=== PATIENT | male | born 1975 | race Caucasian/White ===

== ENCOUNTER 2018-09-07 02:25 | Emergency (ER) | payer OTHER ==
[~2018-09-07] VITALS: Ht 182.9 cm; Wt 104.3 kg
[2018-09-07] MEDS ORDERED: IV NORMAL SALINE 1000ML BAG 1,000 ML IV SCH (03:00)
[2018-09-07] MEDS ORDERED: ONDANSETRON PF 4 MG/2 ML VIAL. IV ONE (03:00)
[2018-09-07 03:16] LABS: BASO % 0 % (0-3); EOS # 0.2 x10^3/uL (0.0-0.7); EOS % 2 % (0-3); HEMATOCRIT 49.3 % (39.0-53.0); HEMOGLOBIN 16.8 g/dL (13.0-17.5); LYMPH # 0.6 x10^3/uL (1.0-4.8); LYMPH % 4 % (24-48); MEAN CORPUSCULAR HEMOGLOBIN 30 pg (25-35); MEAN CORPUSCULAR HGB CONC 34 g/dL (31-37); MEAN CORPUSCULAR VOLUME 86 fL (79-100); MONO # 0.6 x10^3/uL (0.0-1.1); MONO % 5 % (0-9); NEUT # 11.6 x10^3uL (1.8-7.7); NEUT % 89 % (31-73); PLATELET COUNT 257 x10^3/uL (140-400); RED CELL DISTRIBUTION WIDTH 12.7 % (11.5-14.5)
[2018-09-07 03:22] LABS: CALCIUM 9.5 mg/dL (8.5-10.1); CREATININE 1.3 mg/dL (0.7-1.3); GFR 60.2; POTASSIUM 3.8 mmol/L (3.5-5.1)
[2018-09-07 03:30] LABS: ALBUMIN 4.2 g/dL (3.4-5.0); ALBUMIN/GLOBULIN RATIO 1.1 (1.0-1.7); TOTAL BILIRUBIN 0.7 mg/dL (0.2-1.0); TOTAL PROTEIN 8.1 g/dL (6.4-8.2)
[2018-09-07 03:48] LABS: % BANDS 6 % (0-9); % EOS 1 % (0-5); % LYMPHS 6 % (24-48); % MONOS 4 % (0-10); % SEGS 83 % (35-66); PLT ESTIMATE ADEQUATE (ADEQUATE)
[2018-09-07] MEDS ORDERED: DIPHENOXYLATE/ATROPINE TABLET. PO ONE (04:00)
[2018-09-07 04:04] LABS: BILIRUBIN,URINE SMALL (NEG); CLARITY,URINE CLEAR; COLOR,URINE AMBER; NITRITE,URINE NEGATIVE (NEG); PH,URINE 5.5; PROTEIN,URINE NEGATIVE (NEG-TRACE); UROBILINOGEN,URINE 0.2 mg/dL (0.2 mg/dL)
[2018-09-07 04:12] LABS: BACTERIA,URINE 0 /HPF (0-FEW); RBC,URINE 0 /HPF (0-2); SQUAMOUS EPITHELIAL CELL,UR OCC /LPF
[2018-09-07 04:39] VITALS: BP 116/66
[2018-09-07] MEDS ORDERED: ONDA4TAB7 PO (05:05)
[2018-09-07] MEDS ORDERED: DIPH1TAB PO (05:05)
--- NOTE | 2018-09-07 05:05 | PHYS DOC ---
Past Medical History Past Medical History: No Pertinent History Alcohol Use: Occasionally Drug Use: None Adult General Chief Complaint Chief Complaint: MULTIPLE COMPLAINTS HPI HPI Patient is a 43-year-old male who presents with complaint of nausea with vomiting and diarrhea that started about 3 hours prior to arrival. Patient also indicates that he has some burning in his mid chest. He states that the pain started after the vomiting. He denies any fever. He denies any shortness of breath. Patient states that symptoms are worsened if he tries to eat or drink anything. Review of Systems Review of Systems Constitutional: Denies fever or chills [] Respiratory: Denies cough or shortness of breath [] Cardiovascular: No additional information not addressed in HPI [] GI: Complains of abdominal cramping with nausea, vomiting and diarrhea [] Neurologic: Denies headache, focal weakness or sensory changes [] All other systems were reviewed and found to be within normal limits, except as documented in this note. Current Medications Current Medications Current Medications Medications (Trade) Dose Ordered Sig/Amna Start Time Stop Time Status Last Admin Dose Admin Diphenoxylate HCl/ Atropine (Lomotil) 2 tab 1X ONCE 09/07/18 04:00 09/07/18 04:01 DC 09/07/18 03:57 2 TAB Ondansetron HCl (Zofran) 4 mg 1X ONCE 09/07/18 03:00 09/07/18 03:01 DC 09/07/18 03:19 4 MG Sodium Chloride 1,000 ml @ 1,000 mls/hr Q1H 09/07/18 03:00 09/07/18 03:59 DC 09/07/18 03:19 1,000 MLS/HR Allergies Allergies Allergies Coded Allergies Type Severity Reaction Last Updated Verified No Known Drug Allergies 09/07/18 No Physical Exam Physical Exam Constitutional: Well developed, well nourished, no acute distress, non-toxic appearance. [] HENT: Normocephalic, atraumatic, bilateral external ears normal, oropharynx moist, no oral exudates, nose normal. [] Eyes: PERRLA, EOMI, conjunctiva normal, no discharge. [] Neck: Normal range of motion, no tenderness, supple, no stridor. [] Cardiovascular: Regular rate and rhythm[] Lungs & Thorax: Bilateral breath sounds clear to auscultation [] Abdomen: Bowel sounds normal, soft, with mild generalized tenderness. [] Skin: Warm, dry, no erythema, no rash. [] Extremities: No tenderness, no cyanosis, no clubbing, ROM intact, no edema. [] Neurologic: Alert and oriented X 3, no focal deficits noted. [] Current Patient Data Vital Signs Vital Signs Date Time Temp Pulse Resp B/P (MAP) Pulse Ox O2 Delivery O2 Flow Rate FiO2 09/07/18 04:39 70 12 116/66 (83) 96 Room Air 09/07/18 02:51 98.0 98.0 Lab Values Laboratory Tests Test 09/07/18 03:10 09/07/18 03:59 White Blood Count 13.0 x10^3/uL (4.0-11.0) H Red Blood Count 5.70 x10^6/uL (4.30-5.70) Hemoglobin 16.8 g/dL (13.0-17.5) Hematocrit 49.3 % (39.0-53.0) Mean Corpuscular Volume 86 fL (79-100) Mean Corpuscular Hemoglobin 30 pg (25-35) Mean Corpuscular Hemoglobin Concent 34 g/dL (31-37) Red Cell Distribution Width 12.7 % (11.5-14.5) Platelet Count 257 x10^3/uL (140-400) Neutrophils (%) (Auto) 89 % (31-73) H Lymphocytes (%) (Auto) 4 % (24-48) L Monocytes (%) (Auto) 5 % (0-9) Eosinophils (%) (Auto) 2 % (0-3) Basophils (%) (Auto) 0 % (0-3) Neutrophils # (Auto) 11.6 x10^3uL (1.8-7.7) H Lymphocytes # (Auto) 0.6 x10^3/uL (1.0-4.8) L Monocytes # (Auto) 0.6 x10^3/uL (0.0-1.1) Eosinophils # (Auto) 0.2 x10^3/uL (0.0-0.7) Basophils # (Auto) 0.0 x10^3/uL (0.0-0.2) Segmented Neutrophils % 83 % (35-66) H Band Neutrophils % 6 % (0-9) Lymphocytes % 6 % (24-48) L Monocytes % 4 % (0-10) Eosinophils % 1 % (0-5) Platelet Estimate Adequate (ADEQUATE) Sodium Level 141 mmol/L (136-145) Potassium Level 3.8 mmol/L (3.5-5.1) Chloride Level 102 mmol/L (98-107) Carbon Dioxide Level 26 mmol/L (21-32) Anion Gap 13 (6-14) Blood Urea Nitrogen 25 mg/dL (8-26) Creatinine 1.3 mg/dL (0.7-1.3) Estimated GFR (Cockcroft-Gault) 60.2 BUN/Creatinine Ratio 19 (6-20) Glucose Level 133 mg/dL (70-99) H Calcium Level 9.5 mg/dL (8.5-10.1) Total Bilirubin 0.7 mg/dL (0.2-1.0) Aspartate Amino Transferase (AST) 25 U/L (15-37) Alanine Aminotransferase (ALT) 48 U/L (16-63) Alkaline Phosphatase 90 U/L (46-116) Troponin I Quantitative < 0.017 ng/mL (0.000-0.055) Total Protein 8.1 g/dL (6.4-8.2) Albumin 4.2 g/dL (3.4-5.0) Albumin/Globulin Ratio 1.1 (1.0-1.7) Lipase 125 U/L (73-393) Urine Collection Type Unknown Urine Color Daina Urine Clarity Clear Urine pH 5.5 Urine Specific Amelia >=1.030 Urine Protein Negative mg/dL (NEG-TRACE) Urine Glucose (UA) Negative mg/dL (NEG) Urine Ketones (Stick) Trace mg/dL (NEG) Urine Blood Negative (NEG) Urine Nitrite Negative (NEG) Urine Bilirubin Small (NEG) Urine Urobilinogen Dipstick 0.2 mg/dL (0.2 mg/dL) Urine Leukocyte Esterase Negative (NEG) Urine RBC 0 /HPF (0-2) Urine WBC 1-4 /HPF (0-4) Urine Squamous Epithelial Cells Occ /LPF Urine Bacteria 0 /HPF (0-FEW) Urine Mucus Marked /LPF Laboratory Tests 09/07/18 03:10 Laboratory Tests 09/07/18 03:10 EKG EKG [] Radiology/Procedures Radiology/Procedures [] Course & Med Decision Making Course & Med Decision Making Pertinent Labs and Imaging studies reviewed. (See chart for details) [] Dragon Disclaimer Dragon Disclaimer This electronic medical record was generated, in whole or in part, using a voice recognition dictation system. Departure Departure Impression: Primary Impression: Gastroenteritis Additional Impression: Dehydration Disposition: 01 HOME, SELF-CARE Condition: STABLE Referrals: NO PCP (PCP) Patient Instructions: Dehydration, Adult, Viral Gastroenteritis Scripts Diphenoxylate Hcl/Atropine (LOMOTIL TABLET) 1 Each Tablet 1 TAB PO TID PRN for DIARRHEA, #15 TAB Prov: ARSH MARROQUIN Jr. DO 09/07/18 Ondansetron Hcl (ZOFRAN) 4 Mg Tablet 4 MG PO PRN TID PRN for NAUSEA, #15 nausea/vomiting Prov: ARSH MARROQUIN Jr. DO 09/07/18 Problem Qualifiers ARSH MARROQUIN Jr. DO Sep 07, 2018 05:05
--- NOTE | 2018-09-07 14:50 | EKG ---
[facility] [address] [place] [address] Test Date: 2018-09-07 Test Time: 02:46:48 Pat Name: AMILCAR DIAZ Department: Room: Gender: M [employer]: : 1975 Requested By: ARSH MARROQUIN Order Number: [id number] Reading MD: Ronny Kang Measurements Intervals Flora Rate: 80 P: 26 ND: 152 QRS: 46 QRSD: 94 T: 28 QT: 350 QTc: 407 Interpretive Statements SINUS RHYTHM Electronically Signed On 09-17-2018 10:32:40 INVESTMENT ACCOUNTING CLERK by Ronny Kang
== END 2018-09-07 05:13 | disposition home or self-care (01) ==
LOC: ER 02:25
DX: K52.89 Other specified noninfective gastroenteritis and colitis (principal); E86.0 Dehydration; R07.89 Other chest pain
CPT/HCPCS: 36415; 80053; 81001; 83690; 84484; 85007; 85025; 93005; 96361; 96374; 99284; J2405; J7030

== ENCOUNTER 2019-03-12 10:37 | Emergency (ER) | payer OTHER ==
[~2019-03-12] VITALS: Ht 180.3 cm; Wt 99.8 kg
[~2019-03-12 10:37] MED LIST: DIPH1TAB PO; ONDA4TAB7 PO
[2019-03-12] MEDS ORDERED: KETOROLAC 30 MG/ML VIAL. IV ONE (11:30)
[2019-03-12 11:32] LABS: BILIRUBIN,URINE NEGATIVE (NEG); CLARITY,URINE CLEAR; COLOR,URINE YELLOW; NITRITE,URINE NEGATIVE (NEG); PROTEIN,URINE NEGATIVE (NEG-TRACE)
[2019-03-12 11:35] LABS: BASO # 0.1 x10^3/uL (0.0-0.2); BASO % 1 % (0-3); EOS # 0.2 x10^3/uL (0.0-0.7); EOS % 2 % (0-3); HEMATOCRIT 48.2 % (39.0-53.0); HEMOGLOBIN 16.9 g/dL (13.0-17.5); LYMPH # 1.5 x10^3/uL (1.0-4.8); LYMPH % 15 % (24-48); MEAN CORPUSCULAR HEMOGLOBIN 30 pg (25-35); MEAN CORPUSCULAR HGB CONC 35 g/dL (31-37); MEAN CORPUSCULAR VOLUME 87 fL (79-100); MONO # 0.6 x10^3/uL (0.0-1.1); MONO % 6 % (0-9); NEUT # 7.7 x10^3/uL (1.8-7.7); NEUT % 77 % (31-73); PLATELET COUNT 260 x10^3/uL (140-400); RED BLOOD COUNT 5.56 x10^6/uL (4.30-5.70); RED CELL DISTRIBUTION WIDTH 12.9 % (11.5-14.5)
[2019-03-12 11:37] LABS: BACTERIA,URINE 0 /HPF (0-FEW); RBC,URINE 0 /HPF (0-2); SQUAMOUS EPITHELIAL CELL,UR FEW /LPF; WBC,URINE 0 /HPF (0-4)
[2019-03-12 11:47] LABS: CALCIUM 9.1 mg/dL (8.5-10.1); CREATININE 1.1 mg/dL (0.7-1.3); GFR 73.1; POTASSIUM 4.1 mmol/L (3.5-5.1)
[2019-03-12 11:53] LABS: ALBUMIN/GLOBULIN RATIO 1.2 (1.0-1.7); TOTAL BILIRUBIN 0.5 mg/dL (0.2-1.0); TOTAL PROTEIN 7.4 g/dL (6.4-8.2)
[2019-03-12] MEDS ORDERED: IOHEXOL 350 MG/ML 100 ML VIAL. IV ONE ×2 (12:30)
--- NOTE | 2019-03-12 12:46 | PHYS DOC ---
Past Medical History Past Medical History: No Pertinent History Alcohol Use: Occasionally Drug Use: None Adult General Chief Complaint Chief Complaint: Right flank pain, right side lower ribs pain. HPI HPI Patient is a 43 year old male presented to ER today for evaluation of right side lower chest pain that been going on since last Sunday. Patient has several episodes of cough today, he noticed some trace of blood in his sputum. Patient said the pain is worse with cough and movement. he is a commercial trailer truck driver. He denies any injury. Patient went to the urgent care on Sunday, they did a CT scan of his abdomen and pelvic, did not find anything wrong. He is not on any blood thinner. He denies any urinary symptom. Review of Systems Review of Systems Constitutional: Denies fever or chills [] Eyes: Denies change in visual acuity, redness, or eye pain [] HENT: Denies nasal congestion or sore throat [] Respiratory: Denies cough or shortness of breath [] Cardiovascular: No additional information not addressed in HPI. Positive for Right side ribs pain, right side back pain. GI: Denies abdominal pain, nausea, vomiting, bloody stools or diarrhea [] : Denies dysuria or hematuria [] Musculoskeletal: Denies back pain or joint pain [] Integument: Denies rash or skin lesions [] Neurologic: Denies headache, focal weakness or sensory changes [] Endocrine: Denies polyuria or polydipsia [] All other systems were reviewed and found to be within normal limits, except as documented in this note. Current Medications Current Medications Current Medications Medications (Trade) Dose Ordered Sig/Amna Start Time Stop Time Status Last Admin Dose Admin Iohexol (Omnipaque 350 Mg/ml) 100 ml 1X ONCE 03/12/19 12:30 03/12/19 12:31 DC Ketorolac Tromethamine (Toradol 30mg Vial) 30 mg 1X ONCE 03/12/19 11:30 03/12/19 11:32 DC 03/12/19 11:40 30 MG Allergies Allergies Allergies Coded Allergies Type Severity Reaction Last Updated Verified No Known Drug Allergies 09/07/18 No Physical Exam Physical Exam Constitutional: Well developed, well nourished, no acute distress, non-toxic appearance. [] HENT: Normocephalic, atraumatic, bilateral external ears normal, oropharynx moist, no oral exudates, nose normal. [] Eyes: PERRLA, EOMI, conjunctiva normal, no discharge. [] Neck: Normal range of motion, no tenderness, supple, no stridor. [] Cardiovascular:Heart rate regular rhythm, no murmur [] Lungs & Thorax: Bilateral breath sounds clear to auscultation. There is tenderness to palpation in RIGHT LOWER LATERAL CHEST AREA, NO CREPITUS. Abdomen: Bowel sounds normal, soft, no tenderness, no masses, no pulsatile masses. [] Skin: Warm, dry, no erythema, no rash. [] Back: No midline vertebral tenderness to palpation. , There is right CVA tenderness. [] Extremities: No tenderness, no cyanosis, no clubbing, ROM intact, no edema. [] Neurologic: Alert and oriented X 3, normal motor function, normal sensory function, no focal deficits noted. [] Psychologic: Affect normal, judgement normal, mood normal. [] Current Patient Data Vital Signs Vital Signs Date Time Temp Pulse Resp B/P (MAP) Pulse Ox O2 Delivery O2 Flow Rate FiO2 03/12/19 10:45 97.9 56 16 116/66 (83) 98 Room Air 97.9 Lab Values Laboratory Tests Test 03/12/19 11:12 03/12/19 11:26 Urine Collection Type Unknown Urine Color Yellow Urine Clarity Clear Urine pH 7.0 Urine Specific [place] 1.020 Urine Protein Negative mg/dL (NEG-TRACE) Urine Glucose (UA) Negative mg/dL (NEG) Urine Ketones (Stick) Negative mg/dL (NEG) Urine Blood Negative (NEG) Urine Nitrite Negative (NEG) Urine Bilirubin Negative (NEG) Urine Urobilinogen Dipstick 1.0 mg/dL (0.2 mg/dL) Urine Leukocyte Esterase Negative (NEG) Urine RBC 0 /HPF (0-2) Urine WBC 0 /HPF (0-4) Urine Squamous Epithelial Cells Few /LPF Urine Bacteria 0 /HPF (0-FEW) White Blood Count 10.0 x10^3/uL (4.0-11.0) Red Blood Count 5.56 x10^6/uL (4.30-5.70) Hemoglobin 16.9 g/dL (13.0-17.5) Hematocrit 48.2 % (39.0-53.0) Mean Corpuscular Volume 87 fL (79-100) Mean Corpuscular Hemoglobin 30 pg (25-35) Mean Corpuscular Hemoglobin Concent 35 g/dL (31-37) Red Cell Distribution Width 12.9 % (11.5-14.5) Platelet Count 260 x10^3/uL (140-400) Neutrophils (%) (Auto) 77 % (31-73) H Lymphocytes (%) (Auto) 15 % (24-48) L Monocytes (%) (Auto) 6 % (0-9) Eosinophils (%) (Auto) 2 % (0-3) Basophils (%) (Auto) 1 % (0-3) Neutrophils # (Auto) 7.7 x10^3/uL (1.8-7.7) Lymphocytes # (Auto) 1.5 x10^3/uL (1.0-4.8) Monocytes # (Auto) 0.6 x10^3/uL (0.0-1.1) Eosinophils # (Auto) 0.2 x10^3/uL (0.0-0.7) Basophils # (Auto) 0.1 x10^3/uL (0.0-0.2) Sodium Level 139 mmol/L (136-145) Potassium Level 4.1 mmol/L (3.5-5.1) Chloride Level 103 mmol/L (98-107) Carbon Dioxide Level 24 mmol/L (21-32) Anion Gap 12 (6-14) Blood Urea Nitrogen 16 mg/dL (8-26) Creatinine 1.1 mg/dL (0.7-1.3) Estimated GFR (Cockcroft-Gault) 73.1 BUN/Creatinine Ratio 15 (6-20) Glucose Level 91 mg/dL (70-99) Calcium Level 9.1 mg/dL (8.5-10.1) Total Bilirubin 0.5 mg/dL (0.2-1.0) Aspartate Amino Transferase (AST) 16 U/L (15-37) Alanine Aminotransferase (ALT) 25 U/L (16-63) Alkaline Phosphatase 80 U/L (46-116) Total Protein 7.4 g/dL (6.4-8.2) Albumin 4.0 g/dL (3.4-5.0) Albumin/Globulin Ratio 1.2 (1.0-1.7) Lipase 98 U/L (73-393) Laboratory Tests 03/12/19 11:26 Laboratory Tests 03/12/19 11:26 EKG EKG [] Radiology/Procedures Radiology/Procedures [][facility] [address] [place] [address] IMAGING REPORT Signed PATIENT: AMILCAR DIAZ ACCOUNT: [id number] : 1975 LOCATION: ER AGE: 43 SEX: M EXAM STATUS: REG ER ORD. PHYSICIAN: BARBARA RASCON DO REASON: left side chest pain, coughing up blood PROCEDURE: CT ANGIOGRAPHY CHEST Examination: CT angiography chest HISTORY: History of left-sided chest pain, coughing up blood COMPARISON: None available TECHNIQUE: Axial CT angiography images of chest were performed with IV contrast. Coronal and sagittal reformats are performed Exposure: One or more of the following individualized dose reduction techniques were utilized for this examination: 1. Automated exposure control 2. Adjustment of the mA and/or kV according to patient size 3. Use of iterative reconstruction technique FINDINGS: The central airways are patent. The heart size grossly appears unremarkable. The caliber of the aorta grossly appears unremarkable. There is no evidence of filling defect in the main pulmonary arterial trunk and right and left main pulmonary arteries. The evaluation of distal segmental branches of the pulmonary arteries is limited. Mild lung emphysematous changes. Mild bibasilar lung airspace opacities likely atelectasis or infiltrates. There is a 4 mm nodule identified in the right middle lobe of the lung. Small hypodensities identified in the liver the largest measuring 1.1 cm could be cysts or cystic lesions. Mild degenerative changes thoracic spine. IMPRESSION: 1. No evidence of central pulmonary embolism. 2. Mild bibasilar lung airspace opacities likely atelectasis or infiltrates. 3. 4 mm nodule right middle lobe of the lung. Follow-up per Fleischner Society guidelines with a follow-up CT in 6-12 months. 4. Small hypodensities identified in the liver difficult to characterize could be cysts or cystic lesions. Electronically signed by: Lauro Marlow MD (03/12/2019 12:50 PM) [place] [id number] DICTATED and SIGNED BY: LAURO MARLOW MD DATE: 03/12/19 [id number] Course & Med Decision Making Course & Med Decision Making Pertinent Labs and Imaging studies reviewed. (See chart for details) [] Dragon Disclaimer Dragon Disclaimer This electronic medical record was generated, in whole or in part, using a voice recognition dictation system. Departure Departure Impression: Primary Impression: Acute chest wall pain Additional Impression: Flank pain, acute Disposition: 01 HOME, SELF-CARE Condition: STABLE Referrals: NO PCP (PCP) follow up with your doctor as needed Patient Instructions: Chest Wall Pain, Flank Pain Scripts Ibuprofen (IBUPROFEN) 800 Mg Tablet 800 MG PO PRN Q8HRS PRN for PAIN for 30 Days, TAB Prov: BARBARA RASCON DO 03/12/19 Problem Qualifiers BARBARA RASCON DO Mar 12, 2019 12:46
--- NOTE | 2019-03-12 12:54 | RAD ---
Examination: CT angiography chest HISTORY: History of left-sided chest pain, coughing up blood COMPARISON: None available TECHNIQUE: Axial CT angiography images of chest were performed with IV contrast. Coronal and sagittal reformats are performed Exposure: One or more of the following individualized dose reduction techniques were utilized for this examination: 1. Automated exposure control 2. Adjustment of the mA and/or kV according to patient size 3. Use of iterative reconstruction technique FINDINGS: The central airways are patent. The heart size grossly appears unremarkable. The caliber of the aorta grossly appears unremarkable. There is no evidence of filling defect in the main pulmonary arterial trunk and right and left main pulmonary arteries. The evaluation of distal segmental branches of the pulmonary arteries is limited. Mild lung emphysematous changes. Mild bibasilar lung airspace opacities likely atelectasis or infiltrates. There is a 4 mm nodule identified in the right middle lobe of the lung. Small hypodensities identified in the liver the largest measuring 1.1 cm could be cysts or cystic lesions. Mild degenerative changes thoracic spine. IMPRESSION: 1. No evidence of central pulmonary embolism. 2. Mild bibasilar lung airspace opacities likely atelectasis or infiltrates. 3. 4 mm nodule right middle lobe of the lung. Follow-up per Fleischner Society guidelines with a follow-up CT in 6-12 months. 4. Small hypodensities identified in the liver difficult to characterize could be cysts or cystic lesions. Electronically signed by: Lauro Marlow MD (03/12/2019 12:50 PM) [facility]
[2019-03-12] MEDS ORDERED: IBUP-1060 PO (13:36)
[2019-03-12 13:45] VITALS: BP 126/76
== END 2019-03-12 13:55 | disposition home or self-care (01) ==
LOC: ER 10:37
DX: R07.89 Other chest pain (principal); R05 Cough; R10.9 Unspecified abdominal pain; R07.81 Pleurodynia
CPT/HCPCS: 36415; 71275; 80053; 81001; 83690; 85025; 96374; 99285; J1885; Q9967; 96375

== ENCOUNTER → 2019-03-24 | Outpatient (CLI) | payer OTHER ==
[2019-03-12 13:45] VITALS: BP 126/76
[~2019-03-24] MED LIST changes: +IBUP-1060 PO
--- NOTE | 2019-03-25 08:18 | KCIC ---
MRI Lumbar Spine without contrast History: Low back pain, right leg paresthesia, sharp pain for 2 weeks, right leg weakness and numbness Technique: Multiplanar, multi sequential noncontrast MR imaging was performed of the lumbar spine. Comparison: None Findings: Most inferior fully formed intervertebral disc space is considered L5-S1 for this report. Lumbar vertebral body stature is overall maintained. There is negligible posterior subluxation L2 relative to L3. Conus terminates near L1. There is [id number] degenerative disc disease at L2-3, to a lesser degree at L4-5 and L5-S1, minimally at L1-L2. There are posterior annular tears L2-3, L4-5, and L5-S1 and also anteriorly at L2-3 and L4-5. There is no significant marrow edema. L1-L2: Neural foramina and spinal canal are adequate. L2-L3: There is negligible disc osteophyte complex and bulge. There is mild indentation upon the ventral thecal sac greater in the far lateral recesses bilaterally. There is minimal narrowing of the far lateral recesses greater on the left. Neural foramina are adequate. L3-L4: Neural foramina and spinal canal are adequate. L4-L5: There is a broad posterior protrusion about 4-5 mm AP, indentation upon the ventral thecal sac greatest centrally and in the right lateral recess. There is mild narrowing of the far lateral recesses bilaterally somewhat greater on the right. Neural foramina are adequate. There is mild prominence of posterior epidural fat centrally. L5-S1: There is broad shallow posterior protrusion about 1 to 2 mm AP, near the ventral surfaces of the descending S1 nerve roots bilaterally without significant displacement. Spinal canal is overall adequate. Neural foramina are adequate. Impression: 1. Most inferior fully formed intervertebral disc space is considered L5-S1 for this report. There is mild narrowing of the far lateral recesses bilaterally at L4-5 and to a lesser degree at L2-3 as described. Shallow broad protrusion at L5-S1 is near the ventral surfaces of the descending S1 nerve roots bilaterally without significant displacement. There is no significant lumbar neural foramina compromise. There is degenerative disc disease greatest at L2-3. Electronically signed by: Brayden Mcfadden MD (03/25/2019 8:15 AM) [id number]
== END | disposition home or self-care (01) ==
LOC: KCIC MRI 16:43
PROVIDERS: ATTEND Family Medicine
DX: M51.37 Other intervertebral disc degeneration, lumbosacral region (principal); M48.07 Spinal stenosis, lumbosacral region; M25.78 Osteophyte, vertebrae; M51.27 Other intervertebral disc displacement, lumbosacral region
CPT/HCPCS: 72148